=== PATIENT | male | born 1995 | race Caucasian/White ===

== ENCOUNTER 2018-08-13 20:17 | Emergency (ER) | payer SELFPAY ==
[2018-08-13] MEDS ORDERED: Lidocaine 2% PF * 5 ML VIAL INJ ONE (20:21)
--- NOTE | 2018-08-13 20:40 | UC ---
Laceration HPI - HPI Summary HPI Summary: 22 yo male presents with chin laceration sustained about 30min [employer]. He tells me that he was running on a hill with a friend for exercise and tripped and fell forward - hit his chin on the sidewalk and sustained a laceration. No LOC. He has no pain currently. He applied pressure to the area with a napkin and came to . Last tetanus was within the last 5 years. - History Of Current Complaint Stated Complaint: CHIN LAC Time Seen by Provider: 08/13/18 20:40 Hx Obtained From: Patient Laceration Location: Face Mechanism Of Injury: Blunt Trauma Onset/Duration: Sudden Onset Severity: Mild Pain Intensity: 2 Pain Scale Used: 0-10 Numeric - Allergies/Home Medications Allergies/Adverse Reactions: Allergies Allergy/AdvReac Type Severity Reaction Status Date / Time No Known Allergies Allergy Verified 08/13/18 20:45 Home Medications: Home Medications NK [No Home Medications Reported] 08/13/18 [History Confirmed 08/13/18] PMH/Surg Hx/FS Hx/Imm Hx - Additional Past Medical History Additional PMH: None - Surgical History Surgical History: None - Family History Known Family History: Positive: None - Social History Occupation: Student Lives: Dormitory/Roommates Alcohol Use: Occasionally Substance Use Type: None Smoking Status (MU): Never Smoked Tobacco Review of Systems Constitutional: Negative Skin: Other - Chin laceration Eyes: Negative ENT: Negative Respiratory: Negative Cardiovascular: Negative Musculoskeletal: Negative Neurological: Negative Psychological: Negative All Other Systems Reviewed And Are Negative: Yes Physical Exam - Summary Physical Exam Summary: GENERAL: NAD. WDWN. No pain distress. SKIN: 1.5cm linear laceration at chin with subcutaneous tissue exposure. Scant bleeding. 5mm in width. Mandible: FROM. NTTP. No TMJ pain. NECK: Supple. Nontender. CHEST: No accessory muscle use. Breathing comfortably and in no distress. CV: Pulses intact. Cap refill <2seconds NEURO: Alert. PSYCH: Age appropriate behavior. Triage Information Reviewed: Yes Vital Signs: Vital Signs: Temp Pulse Resp BP Pulse Ox 99 F 95 12 135/83 99 08/13/18 20:41 08/13/18 20:41 08/13/18 20:41 08/13/18 20:41 08/13/18 20:41 Vital Signs Reviewed: Yes Laceration Repair - Laceration Repair 1 Description: Linear Laceration Size After Repair: Length (cm) - 1.5 Modified For Repair: No Anesthesia Used: 2.0% Lido Cleansing Completed Via Routine Prep: Yes Closure Material: Sutures Closure Method: Single Layer Suture Of: Skin Suture Type: Prolene - 6-0 Laceration Course/Dx - Course/Dx Course Of Treatment: The procedure was explained to the pt and all questions were answered. A time out was performed, witnessed, and signed. The area was irrigated with 250mL sterile saline. 1mL of 2% lidocaine without epi was administered and good anesthetization was achieved. In the usual sterile fashion , FOUR 6-0 prolene interrupted sutures were placed. The wound was bandaged with telfa. Pt tolerated procedure well. - Differential Dx - Laceration/Wound Provider Diagnoses: Chin laceration. Fall Discharge - Sign-Out/Discharge Documenting (check all that apply): Patient Departure All imaging exams completed and their final reports reviewed: No Studies - Discharge Plan Condition: Stable Disposition: HOME Patient Education Materials: Care For Your Stitches (ED), Laceration (DC) Referrals: [facility] [Primary Care Provider] - Additional Instructions: If you develop a fever, shortness of breath, chest pain, new or worsening symptoms - please call your PCP or go to the ED. 1) Please keep the area bandaged, clean, dry, and intact for the next 24- 48hours. 2) If you develop a fever, colored or thick discharge, increased pain or swelling - please call your PCP or go to the ED. 3) Please return in 4-5 days to have your FOUR sutures removed. - Billing Disposition and Condition Condition: STABLE Disposition: Home
[2018-08-13 20:45] VITALS: BP 135/83
== END 2018-08-13 21:20 | disposition home or self-care (01) ==
LOC: UCEAST 20:17
DX: S01.81XA Laceration without foreign body of other part of head, initial encounter (principal); W19.XXXA Unspecified fall, initial encounter; Y93.02 Activity, running; Y92.828 Other wilderness area as the place of occurrence of the external cause
CPT/HCPCS: 12011; 99201; G0463